=== PATIENT | male | born 1980 | race African-American/Black ===

== ENCOUNTER 2017-05-02 20:13 | Emergency (ER) | payer BC ==
[2017-05-02] MEDS ORDERED: Ketorolac 60 MG/2 ML SDV IM ONE (21:09)
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
[2017-05-02] MEDS ORDERED: Ketorolac 10 MG Tab PO ONE (21:16)
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
== END 2017-05-02 22:15 | disposition home or self-care (01) ==
LOC: MW.ED 20:13
DX: M62.830 Muscle spasm of back (principal); M54.2 Cervicalgia; F17.210 Nicotine dependence, cigarettes, uncomplicated
CPT/HCPCS: 72040; 72100; 99283; A9270